=== PATIENT | female | born 1990 | race Caucasian/White ===

== ENCOUNTER 2018-05-17 14:33 | Emergency (ER) | payer OTHER ==
[~2018-05-17 14:33] MED LIST: PNV1TABL25 PO; PRED50TA PO
[2018-05-17 14:46] VITALS: BP 148/86
[2018-05-17] MEDS ORDERED: KETOROLAC 60 MG/2 ML VIAL. IM ONE (15:30)
[2018-05-17] MEDS ORDERED: NAPR-683 PO (15:39)
--- NOTE | 2018-05-17 15:40 | PHYS DOC ---
Past History Past Medical History: No Pertinent History Past Surgical History: No Surgical History Smoking: Cigarettes Alcohol Use: None Drug Use: None Adult General Chief Complaint Chief Complaint: VAGINAL BLEEDING HPI HPI Patient is a 27 year old female who presents with complaining of vaginal bleeding. Patient is and had the poor shot for the first time 2 months ago and complaining of abnormal vaginal bleeding for the last 2 weeks after she was discharged from [facility]. Patient states she was admitted for 4 days at [facility] because of unresponsive condition. Patient obtaining of abdominal cramping pain from epigastric to suprapubic area for the last 4 days with nausea and radiation of pain to her back. Patient denies vaginal discharge, painful intercourse, vomiting, diarrhea and constipation, fever and chills, urinary symptoms, history of the same pain. Patient states she thinks she is . Review of Systems Review of Systems Constitutional: Denies fever or chills [] Eyes: Denies change in visual acuity, redness, or eye pain [] HENT: Denies nasal congestion or sore throat [] Respiratory: Denies cough or shortness of breath [] Cardiovascular: No additional information not addressed in HPI [] GI: Reports abdominal pain, nausea, denies vomiting, bloody stools or diarrhea [ ] : Denies dysuria or hematuria [] Musculoskeletal: Denies back pain or joint pain [] Integument: Denies rash or skin lesions [] Neurologic: Denies headache, focal weakness or sensory changes [] Endocrine: Denies polyuria or polydipsia [] All other systems were reviewed and found to be within normal limits, except as documented in this note. Current Medications Current Medications Current Medications Medications (Trade) Dose Ordered Sig/[facility] Start Time Stop Time Status Last Admin Dose Admin Ketorolac Tromethamine (Toradol Im) 60 mg 1X ONCE 05/17/18 15:30 05/17/18 15:31 Allergies Allergies Allergies Coded Allergies Type Severity Reaction Last Updated Verified latex Allergy Intermediate RASH 09/22/14 Yes Uncoded Allergies Type Severity Reaction Last Updated Verified ZPACK Allergy Intermediate RASH 09/22/14 Physical Exam Physical Exam Constitutional: Well developed, well nourished, no acute distress, non-toxic appearance. [] HENT: Normocephalic, atraumatic, oropharynx moist, no oral exudates, nose normal , no pallor. [] Eyes: PERRLA, EOMI, conjunctiva normal, no discharge. [] Neck: Normal range of motion, no tenderness, supple, no stridor. [] Cardiovascular:Heart rate regular rhythm, no murmur [] Lungs & Thorax: Bilateral breath sounds clear to auscultation [] Abdomen: Bowel sounds normal, soft, no tenderness, no masses, no pulsatile masses. [] Skin: Warm, dry, no erythema, no rash. [] Back: No tenderness, no CVA tenderness. [] Extremities: No tenderness, no cyanosis, no clubbing, ROM intact, no edema. [] Neurologic: Alert and oriented X 3, normal motor function, normal sensory function, no focal deficits noted. [] Psychologic: Affect normal, judgement normal, mood normal. [] Current Patient Data Vital Signs Vital Signs Date Time Temp Pulse Resp B/P (MAP) Pulse Ox O2 Delivery O2 Flow Rate FiO2 05/17/18 14:46 97.7 98 18 100 Room Air Lab Results Laboratory Tests Test 05/17/18 14:56 POC Urine HCG, Qualitative hcg negative (Negative) EKG EKG [] Radiology/Procedures Radiology/Procedures [] Course & Med Decision Making Course & Med Decision Making Pertinent Labs reviewed. (See chart for details) Evaluation of patient in ER showed 27-year-old female patient on Depo shot with complaining of vaginal bleeding for 2 weeks without dizziness, palpitation, chest pain or shortness of breath. Patient had unremarkable physical exam and abdominal evaluation. Urine test was negative. Patient informed to follow up with her [employer] regarding Depo shot side effect. Patient treated with Toradol in ER and plan to give prescription of naproxen. Dragon Disclaimer Dragon Disclaimer This electronic medical record was generated, in whole or in part, using a voice recognition dictation system. Departure Departure: Impression: Primary Impression: Abnormal vaginal bleeding Additional Impressions: Tobacco abuse Tobacco abuse counseling Urine test negative Disposition: 01 HOME, SELF-CARE (at 1537) Condition: STABLE Referrals: ANDER LOWE MD (PCP) Patient Instructions: Abnormal Uterine Bleeding, Smoking Cessation, Tips For Success Additional Instructions: Drink plenty of liquids Follow-up with your primary care physician in 3-5 days Return to ER if not getting better Scripts Naproxen (NAPROSYN) 500 Mg Tablet 500 MG PO BID for pain, #20 TAB Prov: LOIS ROBLES MD 05/17/18 Problem Qualifiers LOIS ROBLES MD May 17, 2018 15:40
== END 2018-05-17 15:55 | disposition home or self-care (01) ==
LOC: ER 14:33
DX: N93.8 Other specified abnormal uterine and vaginal bleeding (principal); Z32.02 Encounter for pregnancy test, result negative; F17.210 Nicotine dependence, cigarettes, uncomplicated; Z91.040 Latex allergy status
CPT/HCPCS: 81025; 99282

== ENCOUNTER 2018-08-09 10:16 | Emergency (ER) | payer OTHER ==
[~2018-08-09] VITALS: Ht 160 cm; Wt 86.2 kg
[~2018-08-09 10:16] MED LIST changes: +NAPR-683 PO
[2018-08-09 10:26] VITALS: BP 129/72
[2018-08-09] MEDS ORDERED: ONDANSETRON PF 4 MG/2 ML VIAL. ONE (10:28)
[2018-08-09] MEDS ORDERED: ONDANSETRON PF 4 MG/2 ML VIAL. IV ONE ×2 (10:30→10:45)
[2018-08-09] MEDS ORDERED: IV NORMAL SALINE 1,000ML 1,000 ML IV ONE ×2 (10:30→10:45)
[2018-08-09 10:44] LABS: BASO % 0 % (0-3); EOS # 0.1 x10^3/uL (0.0-0.7); EOS % 1 % (0-3); HEMATOCRIT 46.6 % (36.0-47.0); HEMOGLOBIN 16.2 g/dL (12.0-15.5); LYMPH # 1.1 x10^3/uL (1.0-4.8); LYMPH % 10 % (24-48); MEAN CORPUSCULAR HEMOGLOBIN 30 pg (25-35); MEAN CORPUSCULAR HGB CONC 35 g/dL (31-37); MEAN CORPUSCULAR VOLUME 87 fL (79-100); MONO # 0.7 x10^3/uL (0.0-1.1); MONO % 6 % (0-9); NEUT # 9.7 x10^3uL (1.8-7.7); NEUT % 83 % (31-73); PLATELET COUNT 238 x10^3/uL (140-400); RED BLOOD COUNT 5.37 x10^6/uL (3.50-5.40); RED CELL DISTRIBUTION WIDTH 13.1 % (11.5-14.5); WHITE BLOOD COUNT 11.7 x10^3/uL (4.0-11.0)
[2018-08-09 10:55] LABS: ALBUMIN/GLOBULIN RATIO 1.1 (1.0-1.7); CREATININE 0.8 mg/dL (0.6-1.0); GFR 86.7; POTASSIUM 4.2 mmol/L (3.5-5.1); TOTAL BILIRUBIN 0.8 mg/dL (0.2-1.0); TOTAL PROTEIN 7.7 g/dL (6.4-8.2)
--- NOTE | 2018-08-09 11:29 | PHYS DOC ---
Past History Past Medical History: No Pertinent History Past Surgical History: No Surgical History Smoking: Cigarettes Alcohol Use: None Drug Use: None Adult General Chief Complaint Chief Complaint: ABDOMINAL PAIN HPI HPI 27 year old female presents with vomiting and diarrhea. She woke up at 3 AM with violent vomiting followed by several episodes of watery diarrhea. She has not had vomiting and diarrhea this intense in the past and it was concerning. She was feeling fine yesterday. Other people in her family ate the same food last night and have no symptoms. Patient denies fever, chills, cough, sore throat. She has some generalized abdominal pain. Review of Systems Review of Systems Constitutional: Denies fever or chills [] Eyes: Denies change in visual acuity, redness, or eye pain [] HENT: Denies nasal congestion or sore throat [] Respiratory: Denies cough or shortness of breath [] Cardiovascular: No additional information not addressed in HPI [] GI: Nausea, vomiting, diarrhea.[] : Denies dysuria or hematuria [] Musculoskeletal: Denies back pain or joint pain [] Integument: Denies rash or skin lesions [] Neurologic: Denies headache, focal weakness or sensory changes [] Endocrine: Denies polyuria or polydipsia [] All other systems were reviewed and found to be within normal limits, except as documented in this note. Current Medications Current Medications Current Medications Medications (Trade) Dose Ordered Sig/Bernie Start Time Stop Time Status Last Admin Dose Admin Ondansetron HCl (Zofran) 4 mg 1X ONCE 08/09/18 10:30 08/09/18 10:43 DC Sodium Chloride 1,000 ml @ 1,000 mls/hr 1X ONCE 08/09/18 10:30 08/09/18 11:29 Allergies Allergies Allergies Coded Allergies Type Severity Reaction Last Updated Verified latex Allergy Intermediate RASH 09/22/14 Yes Uncoded Allergies Type Severity Reaction Last Updated Verified ZPACK Allergy Intermediate RASH 09/22/14 Physical Exam Physical Exam Constitutional: Well developed, well nourished, no acute distress, non-toxic appearance. [] HENT: Normocephalic, atraumatic, bilateral external ears normal, oropharynx moist, no oral exudates, nose normal. [] Eyes: PERRLA, EOMI, conjunctiva normal, no discharge. [] Neck: Normal range of motion, no tenderness, supple, no stridor. [] Cardiovascular:Heart rate regular rhythm, no murmur [] Lungs & Thorax: Bilateral breath sounds clear to auscultation [] Abdomen: Mild periumbilical tenderness, soft, no rebound or guarding.[] Skin: Warm, dry, no erythema, no rash. [] Back: No tenderness, no CVA tenderness. [] Extremities: No tenderness, no cyanosis, no clubbing, ROM intact, no edema. [] Neurologic: Alert and oriented X 3, normal motor function, normal sensory function, no focal deficits noted. [] Psychologic: Affect normal, judgement normal, mood normal. [] Current Patient Data Vital Signs Vital Signs Date Time Temp Pulse Resp B/P (MAP) Pulse Ox O2 Delivery O2 Flow Rate FiO2 08/09/18 10:26 98.3 96 20 97 Room Air Lab Results Laboratory Tests Test 08/09/18 10:30 White Blood Count 11.7 x10^3/uL (4.0-11.0) H Red Blood Count 5.37 x10^6/uL (3.50-5.40) Hemoglobin 16.2 g/dL (12.0-15.5) H Hematocrit 46.6 % (36.0-47.0) Mean Corpuscular Volume 87 fL (79-100) Mean Corpuscular Hemoglobin 30 pg (25-35) Mean Corpuscular Hemoglobin Concent 35 g/dL (31-37) Red Cell Distribution Width 13.1 % (11.5-14.5) Platelet Count 238 x10^3/uL (140-400) Neutrophils (%) (Auto) 83 % (31-73) H Lymphocytes (%) (Auto) 10 % (24-48) L Monocytes (%) (Auto) 6 % (0-9) Eosinophils (%) (Auto) 1 % (0-3) Basophils (%) (Auto) 0 % (0-3) Neutrophils # (Auto) 9.7 x10^3uL (1.8-7.7) H Lymphocytes # (Auto) 1.1 x10^3/uL (1.0-4.8) Monocytes # (Auto) 0.7 x10^3/uL (0.0-1.1) Eosinophils # (Auto) 0.1 x10^3/uL (0.0-0.7) Basophils # (Auto) 0.0 x10^3/uL (0.0-0.2) Sodium Level 142 mmol/L (136-145) Potassium Level 4.2 mmol/L (3.5-5.1) Chloride Level 107 mmol/L (98-107) Carbon Dioxide Level 22 mmol/L (21-32) Anion Gap 13 (6-14) Blood Urea Nitrogen 14 mg/dL (7-20) Creatinine 0.8 mg/dL (0.6-1.0) Estimated GFR (Cockcroft-Gault) 86.7 BUN/Creatinine Ratio 18 (6-20) Glucose Level 97 mg/dL (70-99) Calcium Level 9.0 mg/dL (8.5-10.1) Total Bilirubin 0.8 mg/dL (0.2-1.0) Aspartate Amino Transferase (AST) 19 U/L (15-37) Alanine Aminotransferase (ALT) 40 U/L (14-59) Alkaline Phosphatase 80 U/L (46-116) Total Protein 7.7 g/dL (6.4-8.2) Albumin 4.0 g/dL (3.4-5.0) Albumin/Globulin Ratio 1.1 (1.0-1.7) Lipase 289 U/L (73-393) EKG EKG [] Radiology/Procedures Radiology/Procedures [] Course & Med Decision Making Course & Med Decision Making Pertinent Labs and Imaging studies reviewed. (See chart for details) The patient's was given 4 mg of Zofran IV as well as 1 L normal saline. This has controlled her vomiting. Her labs are remarkable for slightly elevated white count with the rest essentially normal. Her urine is negative. The patient is feeling a bit better at this time. She has not had diarrhea in the ED. I will discharge her with a prescription for Zofran. She can use loperamide at home for diarrhea if needed. She is stable for discharge at this time. [] Dragon Disclaimer Dragon Disclaimer This electronic medical record was generated, in whole or in part, using a voice recognition dictation system. Departure Departure: Impression: Primary Impression: Viral gastroenteritis Disposition: 01 HOME, SELF-CARE Condition: STABLE Referrals: ANDER LOWE MD (PCP) Patient Instructions: Viral Gastroenteritis, Hlet-ce-Hlqt Scripts Ondansetron (ONDANSETRON ODT) 4 Mg Tab.rapdis 1 TAB PO PRN Q6-8HRS PRN for VOMITING, #16 TAB Prov: LOVELY CARREON DO 08/09/18 LOVELY CARREON DO Aug 09, 2018 11:29
[2018-08-09] MEDS ORDERED: ONDA4TAB12 PO (12:03)
== END 2018-08-09 12:12 | disposition home or self-care (01) ==
LOC: ER 10:16
DX: A08.4 Viral intestinal infection, unspecified (principal); R19.7 Diarrhea, unspecified; R11.2 Nausea with vomiting, unspecified; F17.210 Nicotine dependence, cigarettes, uncomplicated; Z91.040 Latex allergy status
CPT/HCPCS: 36415; 80053; 81025; 83690; 85025; 96361; 96374; 99283; J2405; J7030

== ENCOUNTER 2019-12-04 13:50 | Emergency (ER) | payer OTHER ==
[~2019-12-04] VITALS: Ht 160 cm; Wt 95.2 kg
[~2019-12-04 13:50] MED LIST changes: +ONDA4TAB12 PO
[2019-12-04 13:53] VITALS: BP 136/77
--- NOTE | 2019-12-04 14:11 | PHYS DOC ---
Past History Past Medical History: No Pertinent History Past Surgical History: No Surgical History Smoking: Cigarettes Alcohol Use: None Drug Use: None General Adult EDM: Chief Complaint: LOWER BACK PAIN OR INJURY HPI: HPI: 29-year-old female presents with low back pain. The patient was coming out of her apartment when she slipped on the stairs and fell straight down onto her buttocks. She now has lower lumbar pain that she rates as severe. She denies numbness or tingling in the legs. She does not feel like she can stand up straight. She drove herself here, but states that it was difficult and very painful. She is crying while I am talking to her because it is still painful sitting on the bed. She denies any other injuries or complaints this time. Review of Systems: Review of Systems: Constitutional: Denies fever or chills Eyes: Denies change in visual acuity HENT: Denies nasal congestion or sore throat Respiratory: Denies cough or shortness of breath Cardiovascular: Denies chest pain or edema GI: Denies abdominal pain, nausea, vomiting, bloody stools or diarrhea : Denies dysuria Musculoskeletal: Low back pain Integument: Denies rash Neurologic: Denies headache, focal weakness or sensory changes Endocrine: Denies polyuria or polydipsia Lymphatic: Denies swollen glands Psychiatric: Denies depression or anxiety Heart Score: Risk Factors: Risk Factors: DM, Current or recent (<one month) smoker, HTN, HLP, family history of CAD, obesity. Risk Scores: Score 0 - 3: 2.5% MACE over next 6 weeks - Discharge Home Score 4 - 6: 20.3% MACE over next 6 weeks - Admit for Clinical Observation Score 7 - 10: 72.7% MACE over next 6 weeks - Early Invasive Strategies Allergies: Allergies: Allergies Coded Allergies Type Severity Reaction Last Updated Verified pineapple Allergy Severe 12/04/19 Yes latex Allergy Intermediate RASH 09/22/14 Yes azithromycin Allergy Unknown 12/04/19 Yes Physical Exam: PE: Constitutional: Well developed, obese, well nourished, no acute distress, non- toxic appearance. [] HENT: Normocephalic, atraumatic, bilateral external ears normal, oropharynx moist, no oral exudates, nose normal. [] Eyes: PERRLA, EOMI, conjunctiva normal, no discharge. [] Neck: Normal range of motion, no tenderness, supple, no stridor. [] Cardiovascular: Heart rate regular rhythm, no murmur [] Lungs & Thorax: Bilateral breath sounds clear to auscultation [] Abdomen: Bowel sounds normal, soft, no tenderness, no masses, no pulsatile masses. [] Skin: Warm, dry, no erythema, no rash. [] Back: Lower lumbar tenderness [] Extremities: No tenderness, no cyanosis, no clubbing, ROM intact, no edema. [] Neurologic: Alert and oriented X 3, normal motor function, normal sensory function, no focal deficits noted. [] Psychologic: Affect normal, judgement normal, mood normal. [] EKG: EKG: [] Radiology/Procedures: Radiology/Procedures: [] Impressions: AP, lateral spot and lateral views of the lumbar spine were performed. History: Reason: fall / Spl. Instructions: pt unable to lay, upright xrays, pt motion / History: Comparison: None. There is no fracture, listhesis, intervertebral disc space narrowing, or significant degenerative changes of the lumbar spine.. There is mild scoliosis of the lumbar spine Electronically signed by: Javier Steward MD (12/04/2019 3:20 PM) [id number] DICTATED AND SIGNED BY: JAVIER STEWARD MD DATE: 12/04/191519 CC: LOVELY CARREON DO; ANDER LOWE MD ~ Course & Med Decision Making: Course & Med Decision Making Pertinent Labs and Imaging studies reviewed. (See chart for details) The patient appears to be in significant pain. I have given her 2 mg of morphine IV. Her labs are unremarkable. Her lumbar x-rays do not show any acute findings. I believe she just has a likely contusion of the intervertebral discs. I will discharge her with a short course of Branch 5/325. I have also advised regular ibuprofen, ice, and rest. She is stable for discharge at this time. [] Dragon Disclaimer: Geovani Disclaimer: This electronic medical record was generated, in whole or in part, using a voice recognition dictation system. Departure Departure: Impression: Primary Impression: Lumbar back pain Additional Impression: Fall on stairs Qualified Codes: W10.9XXA - Fall (on) (from) unspecified stairs and steps, initial encounter Disposition: HOME/RESIDENCE PRIOR TO ADM Condition: STABLE Referrals: ANDER LOWE MD (PCP) Patient Instructions: Low Back Sprain with [facility]hab[facility] Scripts Cyclobenzaprine Hcl (CYCLOBENZAPRINE HCL) 10 Mg Tablet 1 TAB PO TID PRN for MUSCLE SPASMS, #30 TAB Prov: LOVELY CARREON DO 12/04/19 Hydrocodone Bit/Acetaminophen (NORCO 5-325 TABLET) 1 Each Tablet 1 TAB PO PRN Q6HRS PRN for PAIN, #14 TAB 0 Refills Prov: LOVELY CARREON DO 12/04/19 Justification of Admission: Justification of Admission: Justification of Admission Dx: N/A LOVELY CARREON DO Dec 04, 2019 14:11
[2019-12-04] MEDS ORDERED: IV NORMAL SALINE 1,000ML 1,000 ML IV ONE (14:15)
[2019-12-04] MEDS ORDERED: MORPHINE SULFATE 2 MG/ML DISP.SYRIN. IV ONE (14:15)
[2019-12-04] MEDS ORDERED: ONDANSETRON PF 4 MG/2 ML VIAL. IVP ONE (14:15)
[2019-12-04 14:55] LABS: BILIRUBIN,URINE NEG (NEG); CLARITY,URINE HAZY; COLOR,URINE YELLOW; GLUCOSE,URINE NEG (NEG); NITRITE,URINE NEG (NEG); RBC,URINE >40 /HPF (0-2); UROBILINOGEN,URINE 0.2 mg/dL (0.2 mg/dL)
[2019-12-04 14:56] LABS: BACTERIA,URINE FEW /HPF (0-FEW); SQUAMOUS EPITHELIAL CELL,UR FEW /LPF
[2019-12-04 14:59] LABS: BASO % 1 % (0-3); EOS # 0.1 x10^3/uL (0.0-0.7); EOS % 2 % (0-3); HEMATOCRIT 42.6 % (36.0-47.0); HEMOGLOBIN 14.6 g/dL (12.0-15.5); LYMPH # 1.5 x10^3/uL (1.0-4.8); LYMPH % 22 % (24-48); MEAN CORPUSCULAR HEMOGLOBIN 30 pg (25-35); MEAN CORPUSCULAR HGB CONC 34 g/dL (31-37); MEAN CORPUSCULAR VOLUME 87 fL (79-100); MONO # 0.5 x10^3/uL (0.0-1.1); MONO % 7 % (0-9); NEUT # 4.8 x10^3uL (1.8-7.7); NEUT % 69 % (31-73); PLATELET COUNT 235 x10^3/uL (140-400); RED BLOOD COUNT 4.87 x10^6/uL (3.50-5.40); RED CELL DISTRIBUTION WIDTH 13.5 % (11.5-14.5)
--- NOTE | 2019-12-04 15:23 | RAD ---
AP, lateral spot and lateral views of the lumbar spine were performed. History: Reason: fall / Spl. Instructions: pt unable to lay, upright xrays, pt motion / History: Comparison: None. There is no fracture, listhesis, intervertebral disc space narrowing, or significant degenerative changes of the lumbar spine.. There is mild scoliosis of the lumbar spine Electronically signed by: Javier Driscoll MD (12/04/2019 3:20 PM) [id number]
[2019-12-04] MEDS ORDERED: HYDR-3165 PO (15:58)
[2019-12-04] MEDS ORDERED: CYCL-331 PO (16:04)
== END 2019-12-04 16:10 | disposition home or self-care (01) ==
LOC: ER 13:50
DX: M54.5 Low back pain (principal); F17.210 Nicotine dependence, cigarettes, uncomplicated; Z91.040 Latex allergy status; Z91.018 Allergy to other foods; W10.8XXA Fall (on) (from) other stairs and steps, initial encounter; Y93.89 Activity, other specified; Y92.89 Other specified places as the place of occurrence of the external cause; Y99.8 Other external cause status
CPT/HCPCS: 36415; 72100; 81001; 85025; 96374; 96375; 99284; J2270; J2405; J7030

== ENCOUNTER 2021-06-24 09:27 | Emergency (ER) | payer BC, OTHER ==
[~2021-06-24] VITALS: Ht 160 cm; Wt 95.2 kg
[~2021-06-24 09:27] MED LIST changes: +CYCL10TA19 PO; +HYDR-3165 PO
[2021-06-24 10:10] VITALS: BP 146/93
[2021-06-24] MEDS ORDERED: ORPHENADRINE CITRATE 60 MG/2 ML VIAL. IM ONE (10:45)
[2021-06-24] MEDS ORDERED: KETOROLAC 60 MG/2 ML VIAL. IM ONE (10:45)
[2021-06-24] MEDS ORDERED: CYCL10TA19 PO (11:02)
--- NOTE | 2021-06-24 11:02 | PHYS DOC ---
Past History Past Medical History: No Pertinent History (GRIFFIN MENDEZ APRN) Past Surgical History: No Surgical History (GRIFFIN MENDEZ APRN) Smoking: Cigarettes Alcohol Use: None Drug Use: None (GRIFFIN MENDEZ APRN) General Adult EDM: Chief Complaint: BACK PAIN OR INJURY HPI: HPI: Patient is a 30-year-old female presents with left-sided lower back pain. Patient states she was giving her her son a bath yesterday when the pain began. Patient states that she turned to pick him up and had spasms left lower back that radiated into her leg. Patient reports taking Flexeril last night and use a lidocaine patch. Patient states the Flexeril improved her pain. Pain is worse with movement and improves when she is sitting still. Rating pain 8/10. Denies urinary retention or loss of bowel. No saddle anesthesia. Denies medical history. (GRIFFIN MENDEZ APRN) Review of Systems: Review of Systems: ROS At least 10 ROS systems have been reviewed and are negative except as documented in the HPI. General: Negative except as outlined in HPI above. Skin: Negative except as outlined in HPI above. HEENT: Negative except as outlined in HPI above. Neck: Negative except as outlined in HPI above. Respiratory: Negative except as outlined in HPI above.. Cardiovascular: Negative except as outlined in HPI above. Abdomen: Negative except as outlined in HPI above. : Negative except as outlined in HPI above. Back/MSK: Negative except as outlined in HPI above. Neuro: Negative except as outlined in HPI above. Psych: Negative except as outlined in HPI above. (GRIFFIN MENDEZ APRN) Current Medications: Current Meds: Current Medications Medications (Trade) Dose Ordered Sig/Bernie Start Time Stop Time Status Last Admin Dose Admin Ketorolac Tromethamine (Toradol Im) 60 mg 1X ONCE 06/24/21 10:45 06/24/21 10:46 DC 06/24/21 10:46 60 MG Orphenadrine Citrate (Norflex) 60 mg 1X ONCE 06/24/21 10:45 06/24/21 10:46 DC 06/24/21 10:45 60 MG (GRIFFIN MENDEZ APRN) Allergies: Allergies: Allergies Coded Allergies Type Severity Reaction Last Updated Verified pineapple Allergy Severe 12/04/19 Yes latex Allergy Intermediate RASH 09/22/14 Yes azithromycin Allergy Unknown 12/04/19 Yes (GRIFFIN MENDEZ APRN) Physical Exam: PE: Constitutional: Well developed, well nourished, no acute distress, non-toxic appearance. [] HENT: Normocephalic, atraumatic, bilateral external ears normal, oropharynx moist, no oral exudates, nose normal. [] Eyes: PERRLA, EOMI, conjunctiva normal, no discharge. [] Neck: Normal range of motion, no tenderness, supple, no stridor. [] Cardiovascular:Heart rate regular rhythm, no murmur [] Lungs & Thorax: Bilateral breath sounds clear to auscultation [] Abdomen: Bowel sounds normal, soft, no tenderness, no masses, no pulsatile masses. [] Skin: Warm, dry, no erythema, no rash. [] Back: Left, lower back tenderness, radiates into left leg Extremities: No tenderness, no cyanosis, no clubbing, ROM intact, no edema. [] Neurologic: Alert and oriented X 3, normal motor function, normal sensory function, no focal deficits noted. [] Psychologic: Affect normal, judgement normal, mood normal. [] (GRIFFIN MENDEZ APRN) Current Patient Data: Vital Signs: Vital Signs Date Time Temp Pulse Resp B/P (MAP) Pulse Ox O2 Delivery O2 Flow Rate FiO2 06/24/21 10:10 120 20 146/93 (110) 97 (GRIFFIN MENDEZ APRN) EKG: EKG: [] (GRIFFIN MENDEZ APRN) Radiology/Procedures: Radiology/Procedures: [] (GRIFFIN MENDEZ APRN) Heart Score: C/O Chest Pain: No Risk Factors: Risk Factors: DM, Current or recent (<one month) smoker, HTN, HLP, family history of CAD, obesity. Risk Scores: Score 0 - 3: 2.5% MACE over next 6 weeks - Discharge Home Score 4 - 6: 20.3% MACE over next 6 weeks - Admit for Clinical Observation Score 7 - 10: 72.7% MACE over next 6 weeks - Early Invasive Strategies (GRIFFIN MENDEZ APRN) Course & Med Decision Making: Course & Med Decision Making Pertinent Labs and Imaging studies reviewed. (See chart for details) [] 30-year-old male presents with left-sided, lower back pain that started yesterday after picking up her son. Patient states the pain radiates into her left leg. Patient used a muscle relaxer last night at home which improved her pain. Patient's pain was treated in the ER, IM Toradol, IM Norflex. Patient denies saddle anesthesia, urinary retention, loss of bowel. Positive straight leg test. Patient states that pain has improved after medication. Patient most likely having sciatic nerve pain. Patient sent home with a prescription for Flexeril and advised to take ibuprofen to help with discomfort. Discussed return precautions in length. Advised patient to follow-up with her PCP tomorrow if pain is not improved with medication. (GRIFFIN MENDEZ APRN) Course & Med Decision Making I was the Attending physician on the above date of service of this patient. This patient was evaluated, examined, treated, and dispositioned from the emergency department by the mid-level practitioner. Although I was working at the time , no assistance was requested. Electronically signed, Xi Hubbard DO (IX HUBBARD DO) Geovani Disclaimer: Geovani Disclaimer: This electronic medical record was generated, in whole or in part, using a voice recognition dictation system. (GRIFFIN MENDEZ APRN) Departure Departure: Impression: Primary Impression: Lower back pain Qualified Codes: M54.42 - Lumbago with sciatica, left side Disposition: 01 HOME / SELF CARE / HOMELESS Condition: STABLE Referrals: ANDER LOWE MD (PCP) Patient Instructions: Sciatica, [id number] Additional Instructions: You are seen in the emergency room for lower back pain that started yesterday after picking up your child. You were given IM Toradol and Norflex while in the ER. Sending home with a prescription for Flexeril to help with pain. Make sure you are also taking ibuprofen. If your pain does not start to improve please follow-up with your PCP. Return to the emergency room if you have worsening symptoms or concerns such as unable to ambulate, loss of bowel, or robby ble to urinate. EMERGENCY DEPARTMENT GENERAL DISCHARGE INSTRUCTIONS Thank you for coming to [facility] (ED) today and trusting us with you care. We trust that you had a positivie experience in our Emergency Department. If you wish to speak to the department management, you may call the director at [phone]. YOUR FOLLOW UP INSTRUCTIONS ARE FOLLOWS: 1. Do you have a private Doctor? If you do not have a private doctor, please ask for a resource list of physicians or clinics that may be able to assist you with follow up care. 2. The Emergency Physician has interpreted your x-rays. The X-Ray specialist will also review them. If there is a change in the findings, you will be notified in 48 hours when at all possible. 3. A lab test or culture has been done, your results will be reviewed and you will be notified if you need a change in treatment. ADDITIONAL INSTRUCTIONS AND INFORMATION: 1. Your care today has been supervised by a physician who is specially trained in emergency care. Many problems require more than one evaluation for a complete diagnosis and treatment. We recommend that you schedule your follow up appointment as recommended to ensure complete treatment of you illness or injury. If you are unable to obtain follow up care and continue to have a problem, or if your condition worsens, we recommend that you return to the ED. 2. We are not able to safely determine your condition over the phone nor are we able to give sound medical advice over the phone. For these safety reasons, if you call for medical advice we will ask you to come to the ED for further evaluation. 3. If you have any questions regarding these discharge instructions please call the ED at [phone]. SAFETY INFORMATION: In the interest of safety, wellness, and injury prevention; we encourage you to wear your sealbelt, if you smoke; quite smoking, and we encourage family to use a protective helmet for bicycling and other sporting events that present an increased risk for head injury. IF YOUR SYMPTOMS WORSEN OR NEW SYMPTOMS DEVELOP, OR YOU HAVE CONCERNS ABOUT YOUR CONDITION; OR IF YOUR CONDITION WORSENS WHILE YOU ARE WAITING FOR YOUR FOLLOW UP APPOINTMENT; EITHER CONTACT YOUR PRIMARY CARE DOCTOR, THE PHYSICIAN WHOSE NAME AND NUMBER YOU WERE GIVEN, OR RETURN TO THE ED IMMEDIATELY. Scripts Cyclobenzaprine Hcl (CYCLOBENZAPRINE HCL) 10 Mg Tablet 1 TAB PO TID for pain for 7 Days, #21 TAB Prov: GRIFFIN MENDEZ APRN 06/24/21 GRIFFIN MENDEZ APRN Jun 24, 2021 11:02 XI HUBBARD DO Jun 28, 2021 06:42
== END 2021-06-24 12:07 | disposition home or self-care (01) ==
LOC: ER 09:27
DX: M54.42 Lumbago with sciatica, left side (principal); F17.210 Nicotine dependence, cigarettes, uncomplicated; Z88.1 Allergy status to other antibiotic agents; Z91.040 Latex allergy status
CPT/HCPCS: 96372; 99284; J1885; J2360

== ENCOUNTER 2021-09-18 05:20 | Emergency (ER) | payer BC ==
[~2021-09-18] VITALS: Ht 160 cm; Wt 96.7 kg
[2021-09-18 05:33] VITALS: BP 133/86
--- NOTE | 2021-09-18 06:13 | PHYS DOC ---
Past History Past Medical History: No Pertinent History Past Surgical History: Other Additional Past Surgical Histo: DNC Smoking: Cigarettes Alcohol Use: Occasionally Drug Use: None Adult General Chief Complaint Chief Complaint: FEVER HPI HPI Patient presents with complaint of a headache that initially started 3 days ago which she believed was a migraine headache. She states this is since resolved but over the last 24 hours she has had repetitive vomiting and diarrhea. Patient reports abdominal pain associated with this to the right lower quadrant abdomen. Patient did have fever this morning as well. Review of Systems Review of Systems Constitutional: Positive fever Eyes: Denies change in visual acuity, redness, or eye pain [] HENT: Denies nasal congestion or sore throat [] Respiratory: Denies cough or shortness of breath [] Cardiovascular: No additional information not addressed in HPI [] GI: Abdominal pain, vomiting, diarrhea : Denies dysuria or hematuria [] Musculoskeletal: Denies back pain or joint pain [] Integument: Denies rash or skin lesions [] Neurologic: Denies headache, focal weakness or sensory changes [] Endocrine: Denies polyuria or polydipsia [] All other systems were reviewed and found to be within normal limits, except as documented in this note. Current Medications Current Medications Current Medications Medications (Trade) Dose Ordered Sig/Bernie Start Time Stop Time Status Last Admin Dose Admin Ondansetron HCl (Zofran) 4 mg 1X ONCE 09/18/21 06:30 09/18/21 06:31 09/18/21 06:02 4 MG Sodium Chloride 1,000 ml @ 1,000 mls/hr 1X ONCE 09/18/21 06:30 09/18/21 07:29 09/18/21 06:02 1,000 MLS/HR Allergies Allergies Allergies Coded Allergies Type Severity Reaction Last Updated Verified pineapple Allergy Severe 12/04/19 Yes latex Allergy Intermediate RASH 09/22/14 Yes azithromycin Allergy Unknown 12/04/19 Yes Physical Exam Physical Exam Constitutional: Well developed, well nourished, no acute distress, non-toxic appearance. [] HENT: Normocephalic, atraumatic, bilateral external ears normal, oropharynx moist, no oral exudates, nose normal. [] Eyes: PERRLA, EOMI, conjunctiva normal, no discharge. [] Neck: Normal range of motion, no tenderness, supple, no stridor. [] Cardiovascular:Heart rate regular rhythm, no murmur [] Lungs & Thorax: Bilateral breath sounds clear to auscultation [] Abdomen: Soft, tender to palpation in the right lower quadrant at McBurney's point, no rebound no guarding Skin: Warm, dry, no erythema, no rash. [] Back: No tenderness, no CVA tenderness. [] Extremities: No tenderness, no cyanosis, no clubbing, ROM intact, no edema. [] Neurologic: Alert and oriented X 3, normal motor function, normal sensory function, no focal deficits noted. [] Psychologic: Affect normal, judgement normal, mood normal. [] Current Patient Data Vital Signs Vital Signs Date Time Temp Pulse Resp B/P (MAP) Pulse Ox O2 Delivery O2 Flow Rate FiO2 09/18/21 05:33 98.3 84 16 133/86 (102) 97 Room Air EKG EKG [] Radiology/Procedures Radiology/Procedures [] Heart Score C/O Chest Pain: No Risk Factors: Risk Factors: DM, Current or recent (<one month) smoker, HTN, HLP, family history of CAD, obesity. Risk Scores: Risk Factors: DM, Current or recent (<one month) smoker, HTN, HLP, family history of CAD, obesity. Course & Med Decision Making Course & Med Decision Making Patient with IV fluids given in the emergency department. Zofran given, no further vomiting. Labs without significant leukocytosis, LFTs all normal. Patient with CT pursued given the right lower quadrant abdominal pain and CT with no acute abnormal findings appreciated. Patient's vital signs are stable, no further vomiting in the emergency department overall patient feels much better and feels able to go home. Likely viral process viral gastroenteritis. Return precautions discussed at length [] Dragon Disclaimer Dragon Disclaimer This electronic medical record was generated, in whole or in part, using a voice recognition dictation system. Departure Departure: Impression: Primary Impression: Gastroenteritis Disposition: 01 HOME / SELF CARE / HOMELESS Condition: GOOD Referrals: ANDER LOWE MD (PCP) Patient Instructions: Viral Gastroenteritis Additional Instructions: Take medication as prescribed. Return for worsening symptoms or other concerns. Contact your primary care physician for follow-up Scripts Ondansetron (ONDANSETRON ODT) 4 Mg Tab.rapdis 1 TAB PO PRN Q6-8HRS PRN for NAUSEA/VOMITING for 7 Days, #16 TAB 0 Refills Prov: TAMMY FLORES MD 09/18/21 TAMMY FLORES MD September 18, 2021 06:13
[2021-09-18] MEDS ORDERED: CONTRAST GIVEN. MC PRN (06:15)
[2021-09-18] MEDS ORDERED: IV NORMAL SALINE 1,000ML 1,000 ML IV ONE (06:30)
[2021-09-18] MEDS ORDERED: ONDANSETRON PF 4 MG/2 ML VIAL. IVP ONE (06:30)
[2021-09-18 06:35] LABS: CALCIUM 8.8 mg/dL (8.5-10.1); CREATININE 0.7 mg/dL (0.6-1.0); GFR 98.3; POTASSIUM 3.4 mmol/L (3.5-5.1)
[2021-09-18 06:41] LABS: BASO % 0 % (0-3); EOS # 0.2 x10^3/uL (0.0-0.7); EOS % 3 % (0-3); HEMOGLOBIN 14.1 g/dL (12.0-15.5); LYMPH # 1.8 x10^3/uL (1.0-4.8); LYMPH % 30 % (24-48); MEAN CORPUSCULAR HEMOGLOBIN 30 pg (25-35); MEAN CORPUSCULAR HGB CONC 34 g/dL (31-37); MEAN CORPUSCULAR VOLUME 88 fL (79-100); MONO # 0.5 x10^3/uL (0.0-1.1); MONO % 8 % (0-9); NEUT # 3.6 x10^3uL (1.8-7.7); NEUT % 59 % (31-73); PLATELET COUNT 255 x10^3/uL (140-400); RED BLOOD COUNT 4.78 x10^6/uL (3.50-5.40); RED CELL DISTRIBUTION WIDTH 13.5 % (11.5-14.5); WHITE BLOOD COUNT 6.1 x10^3/uL (4.0-11.0)
[2021-09-18 06:42] LABS: ALBUMIN 3.4 g/dL (3.4-5.0); ALBUMIN/GLOBULIN RATIO 0.9 (1.0-1.7); TOTAL BILIRUBIN 0.9 mg/dL (0.2-1.0)
[2021-09-18 06:55] LABS: PREG TEST PT QUAL NEGATIVE (NEG)
--- NOTE | 2021-09-18 06:57 | RAD ---
PQRS Compliance Statement: One or more of the following individualized dose reduction techniques were utilized for this examinat ion: 1. Automated exposure control 2. Adjustment of the mA and/or kV according to patient size 3. Use of iterative reconstruction technique CT ABDOMEN+PELVIS W Clinical Indication: Reason: RLQ abd pain / Spl. Instructions: / History: Comparison: None. Technique: Helical CT imaging of the abdomen and pelvis is performed after 75 cc of Omnipaque 300 IV contrast. Oral contrast not administered. Findings: Lung bases are clear. Cardiac size is normal. The liver, gallbladder, spleen, pancreas, adrenal glands, abdominal aorta, and kidneys are normal. Stomach is unremarkable. There is a tiny fat-containing umbilical hernia. There is no dilated small b owel. The appendix is normal. There is no colon wall thickening. There is no abdominal adenopathy or free fluid. Urinary bladder is normal. Uterus is anteverted. The ovaries are symmetric in size. There is a tampon in the vagina. No pelvic free fluid. No acute bone abnormality. IMPRESSION: No acute abdominal or pelvic abnormality. The appendix is normal. Electronically signed by: Mc Granados MD (09/18/2021 6:54 AM) [facility]
[2021-09-18] MEDS ORDERED: IOHEXOL 300 MG/ML 75 ML VIAL. IV ONE (07:00)
[2021-09-18] MEDS ORDERED: ONDA4TAB12 PO (07:51)
[2021-09-18 07:54] LABS: BACTERIA,URINE 0 /HPF (0-FEW); CLARITY,URINE CLEAR; COLOR,URINE YELLOW; GLUCOSE,URINE NEG (NEG); NITRITE,URINE NEG (NEG); SQUAMOUS EPITHELIAL CELL,UR FEW /LPF; UROBILINOGEN,URINE 0.2 mg/dL (0.2 mg/dL)
== END 2021-09-18 08:05 | disposition home or self-care (01) ==
LOC: ER 05:20
DX: K52.9 Noninfective gastroenteritis and colitis, unspecified (principal); F17.210 Nicotine dependence, cigarettes, uncomplicated; G43.909 Migraine, unspecified, not intractable, without status migrainosus; Z91.018 Allergy to other foods; Z88.1 Allergy status to other antibiotic agents; Z91.040 Latex allergy status
CPT/HCPCS: 36415; 74177; 80053; 81001; 84703; 85025; 96361; 96374; 99285; J2405; Q9967; J7030